=== PATIENT | male | born 1980 | race Two or more races ===

== ENCOUNTER 2019-02-21 19:44 | Emergency (ER) | payer MEDICAID, OTHER ==
[~2019-02-21] VITALS: Ht 170.2 cm; Wt 108.4 kg
--- NOTE | 2019-02-21 20:02 | NUR ---
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 PT DENIES TINGLING NOW. PT IS SLIGHTLY DIAPHORETIC. PT IS ON A ZPACK SINCE YESTERDAY FOR "COLD". PT HAS HX OF HTN AND IS TAKING METOPROLOL AND DIOVAN. PT STATED THAT HE STOPPED SMOKING 1 MONTH AGO. PT WAS A PACK A DAY SMOKER PRIOR TO THAT. PT IS ON THE MONITOR AND CONTINOUS PULSE OX.
[2019-02-21 20:39] LABS: BASOPHILS % (AUTO) 0.6 % (0.0-2.0); EOSINOPHILS % (AUTO) 2.8 % (0.0-6.0); HEMATOCRIT 42 % (39-51); HEMOGLOBIN 14.4 g/dL (13.5-17.5); LYMPHOCYTES # (AUTO) 1.4 /CMM (0.8-4.8); LYMPHOCYTES % (AUTO) 27.9 % (20.0-44.0); MEAN CORPUSCULAR HGB CONC 35 g/dl (31.0-36.0); MEAN CORPUSCULAR VOLUME 88 fL (80-96); MONOCYTES # (AUTO) 0.6 /CMM (0.1-1.30); MONOCYTES % (AUTO) 11.4 % (2.0-12.0); NEUTROPHILS # (AUTO) 2.9 /CMM (1.8-8.9); NEUTROPHILS % (AUTO) 57.3 % (43.0-81.0); PLATELET COUNT (AUTO) 213 /CMM (150-450); RED BLOOD CELL COUNT(AUTO) 4.73 MIL/uL (4.5-6.0); WHITE BLOOD COUNT (AUTO) 5.1 K/uL (4.3-11.0)
[2019-02-21] MEDS ORDERED: LORAZEPAM 1 MG TABLET ONE (20:44)
[2019-02-21] MEDS ORDERED: ASPIRIN 81 MG TAB.CHEW ONE (20:44)
[2019-02-21 20:47] LABS: CALCIUM, SERUM 8.7 mg/dL (8.5-10.1); CARBON DIOXIDE 29 mmol/L (21-32); CHLORIDE 103 mmol/L (98-107); CREATININE 1.2 mg/dL (0.6-1.3); GLUCOSE 137 mg/dL (74-106); POTASSIUM 3.2 mmol/L (3.5-5.1); SODIUM SERUM 137 mmol/L (136-145); UREA NITROGEN, BLOOD 21 mg/dL (7-18)
[2019-02-21] MEDS: ASPIRIN 81 MG TAB.CHEW PO ONE (20:48)
[2019-02-21] MEDS: LORAZEPAM 1 MG TABLET PO ONE (20:48)
--- NOTE | 2019-02-21 21:25 | NUR ---
PT STATED THAT HE 'S FEELING BETTER.
[2019-02-21] MEDS: POTASSIUM CHLORIDE 20 MEQ TAB.PRT.SR PO ONE (22:00)
[2019-02-21] MEDS ORDERED: POTASSIUM CHLORIDE 20 MEQ TAB.PRT.SR PO ONE (22:06)
--- NOTE | 2019-02-21 22:16 | NUR ---
IV removed. Catheter intact and site benign. Pressure and 4x4 applied to site. No bleeding noted.Patient discharged to home in stable condition. Written and verbal after care instructions given. Patient verbalizes understanding of instruction. Pt rec'd a copy of all labs and ekg. Pt ambulated out with a steady gait. vss.
[2019-02-21 22:20] VITALS: BP 127/69
== END 2019-02-21 22:21 | disposition home or self-care (01) ==
LOC: ER 19:47
DX: F41.0 Panic disorder [episodic paroxysmal anxiety] (principal); R00.2 Palpitations; E87.6 Hypokalemia; I10 Essential (primary) hypertension; Z87.891 Personal history of nicotine dependence
CPT/HCPCS: 36415; 71045-TC; 80048-TC; 84484-TC; 85025-TC

== ENCOUNTER → 2019-08-21 | Emergency (ER) | payer MEDICAID, OTHER ==
--- NOTE | 2019-08-21 22:32 | NUR ---
CALLED PT IN WAITING ROOM. NO RESPONSE.
--- NOTE | 2019-08-21 23:39 | NUR ---
CALLED PT IN WAITING ROOM. NO RESPONSE.
--- NOTE | 2019-08-22 00:27 | NUR ---
CALLED PT IN WAITING ROOM. NO RESPONSE.
== END | disposition left against medical advice (07) ==
LOC: ER 21:30
DX: Z53.21 Procedure and treatment not carried out due to patient leaving prior to being seen by health care provider (principal)